=== PATIENT | female | born 1980 | race Caucasian/White ===

== ENCOUNTER 2023-04-08 10:27 | Day surgery (SDC) | payer BC, MEDICARE ==
[2023-04-02 11:42] VITALS: BP 129/84; PULSE 94; RESP 19
[2023-04-02 12:10] LABS: HEMATOCRIT 37.8 % (36-48); MEAN CORPUSCULAR HEMOGLOBIN 29.5 pg (27.0-33.0); MEAN CORPUSCULAR HGB CONC 31.2 g/dL (32.0-36.0); MEAN CORPUSCULAR VOLUME 94.5 fL (79-99); RED CELL DISTRIBUTION WIDTH 14.3 % (11.0-15.5)
[2023-04-02 12:29] LABS: CREATININE 4.6 mg/dL (0.5-1.5); POTASSIUM 4.1 mmol/L (3.5-5.1)
[2023-04-02 13:08] LABS: INR < 0.93 (0.85-1.15); PROTHROMBIN TIME 10.5 SEC (9.6-11.6)
[2023-04-02 13:10] LABS: PARTIAL THROMBOPLASTIN TIME 35.6 SEC (26.3-35.5)
[~2023-04-08] VITALS: Ht 160 cm; Wt 68.1 kg
[2023-04-08] VITALS (20 sets, daily range): BP systolic 122–150; BP diastolic 83–98; PULSE 77–95; RESP 10–18
[~2023-04-08 10:27] MED LIST: AMIT10TA6 PO; APIX5TAB PO; CEFAZOLIN SODIUM 2 GM VIAL IVPB ONE; LEVE-43 PO; LEVE250T PO; METO75TA PO; MYCO500T PO; PRED5TAB PO
[2023-04-08] MEDS ORDERED: 0.9% NACL 500ML IV.SOLN 500 ML IV ONE (10:36)
[2023-04-08] MEDS ORDERED: CEFAZOLIN SODIUM 2 GM VIAL ONE (10:36)
[2023-04-08 11:05] LABS: CREATININE 5.3 mg/dL (0.5-1.5); POTASSIUM 4.2 mmol/L (3.5-5.1)
[2023-04-08] MEDS ORDERED: CHOL-34 PO (12:51)
[2023-04-08] MEDS ORDERED: SEVE800T27 PO (12:51)
[2023-04-08] MEDS ORDERED: LEVE-43 PO (12:51)
[2023-04-08] MEDS ORDERED: LEVE250T PO (12:51)
[2023-04-08] MEDS ORDERED: CARV25TA PO (12:51)
[2023-04-08] MEDS ORDERED: ASPI-1521 PO (12:51)
[2023-04-08] MEDS ORDERED: PANT40TA54 PO (12:51)
[2023-04-08] MEDS ORDERED: SACU1TAB PO (12:51)
[2023-04-08] MEDS ORDERED: ISOS10TA8 PO (12:51)
[2023-04-08] MEDS ORDERED: ATOR40TA71 PO (12:51)
[2023-04-08] MEDS ORDERED: AVAT20TA PO (12:51)
[2023-04-08] MEDS ORDERED: FOLI1TAB85 PO (12:51)
[2023-04-08] MEDS ORDERED: NITR0.4T50 SL (12:51)
[2023-04-08] MEDS ORDERED: PRED10TA3 PO (12:51)
[2023-04-08] MEDS ORDERED: CEFAZOLIN SODIUM 1 GM VIAL ONE (13:15)
[2023-04-08] MEDS ORDERED: MIDAZOLAM HCL 1 MG/ML 2ML VIAL ONE (13:46)
[2023-04-08] MEDS ORDERED: FENTANYL CITRATE PF 50 MCG/1 ML 2ML VIAL ONE ×2 (13:47→16:27)
[2023-04-08] MEDS ORDERED: PROPOFOL 10 MG/ML 20ML VIAL IV ONE (13:47)
[2023-04-08] MEDS ORDERED: CEFAZOLIN SODIUM 2 GM VIAL IVPB ONE (14:11)
[2023-04-08] MEDS ORDERED: MORPHINE 2 MG SYG ONE (16:09)
[2023-04-08] MEDS ORDERED: ONDANSETRON 4MG INJ ONE (16:09)
== END 2023-04-08 18:30 | disposition home or self-care (01) ==
LOC: DAH 10:27
PROVIDERS: ATTEND Thoracic Surgery (Cardiothoracic Vascular Surgery)
DX: I12.0 Hypertensive chronic kidney disease with stage 5 chronic kidney disease or end stage renal disease (principal); N18.6 End stage renal disease; E66.01 Morbid (severe) obesity due to excess calories; Z79.899 Other long term (current) drug therapy; Z86.73 Personal history of transient ischemic attack (TIA), and cerebral infarction without residual deficits; Z88.8 Allergy status to other drugs, medicaments and biological substances; Z99.2 Dependence on renal dialysis; Z68.26 Body mass index [BMI] 26.0-26.9, adult
CPT/HCPCS: 80048 ×2; 84703 ×2; 85027; 85610; 85730; 86850 ×2; 86900 ×2; 86901 ×2; 36415 ×2; 71045; 93005; 36831; 36821; A6260; A6207; J7040 ×2; J7030; J3010 ×2; J0690 ×3; J2270; J2250; J2704; J2405; J1644; A6219; A4649 ×6; A6251; C1713 ×2; A4930; A4215; A4223; A4222; A4221; A4663; G0168; J3490